=== PATIENT | female | born 1970 | race Caucasian/White ===

== ENCOUNTER 2016-10-02 12:50 | Emergency (ER) | payer OTHER ==
[~2016-10-02] VITALS: Ht 157.5 cm; Wt 102.5 kg
[~2016-10-02 12:50] MED LIST: ALBU8.5H3 INH; CETI10CA PO; D-ME473S2 PO; GUAI473L22 PO; IBUP-1542 PO; IBUP800T25 PO; LISI10TA2 PO; NAPR-688 PO; ONDA4TAB14 PO; PRED50TA PO; PSEU30TA38 PO
[2016-10-02 13:01] VITALS: Ht 157.5 cm; Wt 102.5 kg
[2016-10-02] MEDS ORDERED: ONDANSETRON (ODT) 4 MG TAB ODT STA (14:51)
[2016-10-02] MEDS ORDERED: KETOROLAC 30 MG INJ IM STA (14:51)
[2016-10-02] MEDS ORDERED: HYDROCODONE/APAP (5/325) TAB PO ONE (15:00)
[2016-10-02 15:12] LABS: URINE BLOOD (Dip) POC Trace-lysed (NEGATIVE)
--- NOTE | 2016-10-02 16:05 | RADRPT ---
PROCEDURE: XR Cervical Spine. CLINICAL INDICATION: Neck pain. Headache TECHNIQUE: AP, lateral, and odontoid views of the cervical spine were obtained. COMPARISON: None available FINDINGS: Mineralization is within normal limits. No fracture or osseous lesion is identified. Vertebral bod ies are normal in height. Cervical lordosis is preserved. No vertebral subluxation is seen. Inter vertebral discs are normal in height except for C5-6 which shows trace posterior narrowing and anter ior spondylosis. Facet joints appear maintained. Prevertebral soft tissues, predental space and at lantoaxial joint are unremarkable. RPTAT:HJJR IMPRESSION: Trace posterior C5-6 disk narrowing and anterior spondylosis, otherwise unremarkable cervical spine series. Physician Julia Date Time Electronically viewed and signed by Physician Julia on 10/02/2016 16:04 JR/
[2016-10-02] MEDS ORDERED: TRAM-40 PO (16:27)
[2016-10-02] MEDS ORDERED: CYCL-319 PO (16:27)
[2016-10-02] MEDS ORDERED: IBUP-1542 PO (16:27)
[2016-10-02] MEDS ORDERED: CEPH-443 PO (16:31)
--- NOTE | 2016-10-02 16:31 | ERD ---
ER Documentation Chief Complaint Date/Time DATE: 10/02/16 TIME: 16:30 Chief Complaint TARIQ WITH RIGHT ARM PAIN WITH NAUSEA X 2 DAYS HPI This 46-year-old female complains of a 2 day history of pain in her neck radiating to her right arm and up the back of her head. She denies any history of trauma. May have started in the morning. She denies any fevers, visual changes, bowel bladder incontinence, weakness. She denies any chest pain or shortness of breath. ROS All systems reviewed and are negative except as per history of present illness. Medications Home Meds Active Scripts Cephalexin* (Keflex*) 500 Mg Capsule, 500 MG PO QID for 5 Days, CAP Prov:CAITLYN SHELLEY MD 10/02/16 Ibuprofen* (Motrin*) 600 Mg Tab, 600 MG PO Q6H Y for PAIN, #20 TAB Prov:CAITLYN SHELLEY MD 10/02/16 Cyclobenzaprine Hcl* (Cyclobenzaprine Hcl*) 10 Mg Tablet, 10 MG PO Q8 Y for PAIN , #15 TAB Prov:CAITLYN SHELLEY MD 10/02/16 Tramadol Hcl* (Ultram*) 50 Mg Tablet, 50 MG PO Q6H Y for PAIN, #20 TAB Prov:CAITLYN SHELLEY MD 10/02/16 Cetirizine Hcl* (Zyrtec*) 10 Mg Capsule, 10 MG PO DAILY, #30 TAB.CHEW Prov:CHELSEA BERGER NP 03/18/16 Guaifenesin-Codeine Phosphate* (Guaifenesin* AC Cough Syrup) 473 Ml Liquid, 5 ML PO Q4H Y for COUGH, #60 ML Prov:CHELSEA BERGER NP 03/18/16 Prednisone* (Prednisone*) 50 Mg Tablet, 50 MG PO DAILY, #5 TAB Prov:CHELSEA BERGER NP 03/18/16 Ibuprofen* (Motrin*) 600 Mg Tab, 600 MG PO Q6H Y for PAIN AND OR ELEVATED TEMP, #30 TAB Prov:CHELSEA BERGER NP 03/18/16 Ondansetron (Ondansetron Odt) 4 Mg Tab.rapdis, 4 MG PO Q8 Y for NAUSEA AND/OR VOMITING, #30 TAB Prov:CHELSEA BERGER NP 03/18/16 Albuterol Sulfate* (Proair HFA*) 8.5 Gm Hfa.aer.ad, 2 PUFF INH Q4H Y for WHEEZING AND SOB, #1 INHALER Prov:CHELSEA BERGER NP 03/18/16 Ibuprofen* (Ibuprofen*) 800 Mg Tab, 800 MG PO Q6H Y for PAIN, #30 TAB Prov:SWATI PEDRAZA PA-C 10/13/15 Pseudoephedrine Hcl* (Pseudoephedrine Hcl*) 30 Mg Tablet, 30 MG PO Q6 Y for CONGESTION, #30 TAB Prov:SWATI PEDRAZA PA-C 10/13/15 Dextromethorphan Hb-Promethazine Hcl* (Promethazine DM* Syrup) 473 Ml Syrup, 5 ML PO Q6 Y for COUGH, #100 ML Prov:SWATI PEDRAZA PA-C 10/13/15 Lisinopril* (Lisinopril*) 10 Mg Tablet, 10 MG PO DAILY, #30 TAB Prov:SWATI PEDRAZA PA-C 10/13/15 Naproxen* (Naproxen*) 500 Mg Tablet, 500 MG PO BID Y for PAIN, #20 TAB Prov:ZULMA ZAPATA DO 09/23/15 Lisinopril* (Lisinopril*) 10 Mg Tablet, 10 MG PO DAILY, #30 TAB Prov:RUDDY VAZQUEZ 03/09/15 Allergies Allergies: Coded Allergies: No Known Allergy (Unverified , 10/02/16) PMhx/Soc History of Surgery: Yes (CHOLESTECTOMY) Anesthesia Reaction: No Hx Neurological Disorder: No Hx Cardiac Disorders: No Hx Psychiatric Problems: No Hx Miscellaneous Medical Probl: Yes (HTN , GASTRITIS ) Hx Alcohol Use: No Hx Substance Use: No Hx Tobacco Use: No Smoking Status: Never smoker Physical Exam Vitals Vital Signs Date Time Temp Pulse Resp B/P Pulse Ox O2 Delivery O2 Flow Rate FiO2 10/02/16 13:01 98.1 64 20 175/95 98 Physical Exam Const: [] Alert, [id number] per Head: Atraumatic Eyes: Normal Conjunctiva ENT: Normal External Ears, Nose and Mouth. Neck: Full range of motion..~ No meningismus. Some tenderness in the right cervical paraspinous muscles. No midline tenderness or deformities Resp: Clear to auscultation bilaterally Cardio: Regular rate and rhythm, no murmurs Abd: Soft, non tender, non distended. Normal bowel sounds Skin: No petechiae or rashes Back: No midline or flank tenderness Ext: No cyanosis, or edema Neur: Awake and alert. Cranial nerves II through XII. Grossly intact. No cerebellar signs. Normal gait. Psych: Normal Mood and Affect Results 24 hrs Laboratory Tests Test 10/02/16 15:14 Bedside Urine pH (LAB) 6.0 Bedside Urine Protein (LAB) 1+ Bedside Urine Glucose (UA) Negative Bedside Urine Ketones (LAB) Negative Bedside Urine Blood Trace-lysed Bedside Urine Nitrite (LAB) Positive Bedside Urine Leukocyte Esterase (L Trace Current Medications Medications (Trade) Dose Ordered Sig/Frank Route PRN Reason Start Time Stop Time Status Last Admin Dose Admin Ketorolac Tromethamine (Toradol) 30 mg ONCE STAT IM 10/02/16 14:51 10/02/16 14:53 DC 10/02/16 15:15 Acetaminophen/ Hydrocodone Bitart ([place] (5/325)) 1 tab ONCE ONCE PO 10/02/16 15:00 10/02/16 15:01 DC 10/02/16 15:15 Ondansetron HCl (Zofran Odt) 8 mg ONCE STAT ODT 10/02/16 14:51 10/02/16 14:53 DC 10/02/16 15:15 Procedures/MDM Urine shows positive nitrites and leukocytes. HCG is negative. X-ray C spine 3V Interpreted by me: Bones: [No fracture] Joints: [No dislocation] Foreign body: [None]. Impression-degenerative changes on C-spine x- rays without acute findings. Patient was given [place] 5 mg by mouth and Toradol 30 mg IM. Patient has neck pain radiating to her accepted and right upper extremity suggestive of cervical radicular symptoms. Signs and symptoms do not suggest intracranial mass-effect , fracture, dislocation neurologic deficits, bacterial infection related to her neck pain. Urine shows signs of infection we will treated with Keflex but additionally with tramadol and Flexeril for her neck pain. Patient is advised to follow-up with primary doctor this week return to the ER for new or worsening symptoms . The patient was stable with no new complaints during the ER course. Clinically, there is no current evidence to suggest meningitis, sepsis, acute abdomen, pneumonia, acute coronary syndrome, pulmonary embolism, or any other emergent condition appearing to require further evaluation or hospitalization. The patient should certainly return for any new or worsening symptoms per the aftercare instructions. They should otherwise follow-up with her primary care doctor for reevaluation this week. Departure Diagnosis: Primary Impression: Radicular pain Additional Impressions: Headache Headache type: unspecified Headache chronicity pattern: unspecified pattern Intractability: not intractable Qualified Code: R51 - Nonintractable headache, unspecified chronicity pattern, unspecified headache type Neck pain Condition: Stable Patient Instructions: Neck Pain, No Trauma, Radiculopathy, Cervical Additional Instructions: probablamente simptomas es del nervio de nucha. Cheque otro vez con mon doctor primario en el proximo martinez or regresa para mas o nueva simptomas. CAITLYN SHELLEY MD October 02, 2016 16:31
[2016-10-02 16:41] VITALS: BP 138/75; PULSE 71; RESP 16; TEMP 98.4
== END 2016-10-02 16:43 | disposition home or self-care (01) ==
LOC: FTE 12:50
DX: M54.10 Radiculopathy, site unspecified (principal); M54.2 Cervicalgia; I10 Essential (primary) hypertension; R11.0 Nausea
CPT/HCPCS: 72040; 81003; 96372; J1885; Z7502; Z7610

== ENCOUNTER 2017-02-24 16:12 | Emergency (ER) | payer OTHER ==
[~2017-02-24] VITALS: Ht 152.4 cm; Wt 89.0 kg
[~2017-02-24 16:12] MED LIST changes: +CEPH-443 PO; +CYCL-319 PO; +TRAM-40 PO
[2017-02-24 16:14] VITALS: Ht 152.4 cm; Wt 89.0 kg
--- NOTE | 2017-02-24 17:22 | ERD ---
ER Documentation Chief Complaint Date/Time DATE: 02/24/17 TIME: 17:15 Chief Complaint AP,NECK PAIN X 3 DAYS HPI 46-year-old female who presented emergency department for nontraumatic and reproducing neck pain, upper back pain for 3 days. LMP: 02/18/2017. A0. Denies headache, dizziness, blurry vision, changes in vision, throat pain, difficulty swallowing, shoulder pain, chest pain, abdominal pain, nausea, vomiting, constipation, diarrhea, urinary symptoms, loss of bowel and bladder control, , possibility of being , being sexually active, direct trauma, injury, falls, numbness or tingling sensation, difficulty walking , fever, chills. No known drug allergies. Past medical history of hypertension, asthma, hype both thyroidism. No surgical history. Medication: Accupril, levothyroxine. Social: Works as a caregiver. Denies smoking, use of alcohol, use of illegal drugs. ROS All systems reviewed and are negative except as per history of present illness. Medications Home Meds Active Scripts Cyclobenzaprine Hcl* (Cyclobenzaprine Hcl*) 10 Mg Tablet, 10 MG PO Q12, #20 TAB Prov:MADELAINEILAMOISÉSILAN F 02/24/17 Ibuprofen* (Motrin*) 800 Mg Tab, 800 MG PO Q8 Y for PAIN AND OR ELEVATED TEMP, # 30 TAB Prov:MADELAINEILABANILAN F 02/24/17 Cephalexin* (Keflex*) 500 Mg Capsule, 500 MG PO QID for 5 Days, CAP Prov:CAITLYN SHELLEY MD 10/02/16 Ibuprofen* (Motrin*) 600 Mg Tab, 600 MG PO Q6H Y for PAIN, #20 TAB Prov:CAITLYN SHELLEY MD 10/02/16 Cyclobenzaprine Hcl* (Cyclobenzaprine Hcl*) 10 Mg Tablet, 10 MG PO Q8 Y for PAIN , #15 TAB Prov:CAITLYN SHELLEY MD 10/02/16 Tramadol Hcl* (Ultram*) 50 Mg Tablet, 50 MG PO Q6H Y for PAIN, #20 TAB Prov:CAITLYN SHELLEY MD 10/02/16 Cetirizine Hcl* (Zyrtec*) 10 Mg Capsule, 10 MG PO DAILY, #30 TAB.CHEW Prov:CHELSEA BERGER NP 03/18/16 Guaifenesin-Codeine Phosphate* (Guaifenesin* AC Cough Syrup) 473 Ml Liquid, 5 ML PO Q4H Y for COUGH, #60 ML Prov:CHELSEA BERGER NP 03/18/16 Prednisone* (Prednisone*) 50 Mg Tablet, 50 MG PO DAILY, #5 TAB Prov:CHELSEA BERGER NP 03/18/16 Ibuprofen* (Motrin*) 600 Mg Tab, 600 MG PO Q6H Y for PAIN AND OR ELEVATED TEMP, #30 TAB Prov:CHELSEA BERGER NP 03/18/16 Ondansetron (Ondansetron Odt) 4 Mg Tab.rapdis, 4 MG PO Q8 Y for NAUSEA AND/OR VOMITING, #30 TAB Prov:CHELSEA BERGER NP 03/18/16 Albuterol Sulfate* (Proair HFA*) 8.5 Gm Hfa.aer.ad, 2 PUFF INH Q4H Y for WHEEZING AND SOB, #1 INHALER Prov:CHELSEA BERGER NP 03/18/16 Ibuprofen* (Ibuprofen*) 800 Mg Tab, 800 MG PO Q6H Y for PAIN, #30 TAB Prov:SWATI PEDRAZA PA-C 10/13/15 Pseudoephedrine Hcl* (Pseudoephedrine Hcl*) 30 Mg Tablet, 30 MG PO Q6 Y for CONGESTION, #30 TAB Prov:SWATI PEDRAZA PA-C 10/13/15 Dextromethorphan Hb-Promethazine Hcl* (Promethazine DM* Syrup) 473 Ml Syrup, 5 ML PO Q6 Y for COUGH, #100 ML Prov:SWATI PEDRAZA PA-C 10/13/15 Lisinopril* (Lisinopril*) 10 Mg Tablet, 10 MG PO DAILY, #30 TAB Prov:SWATI PEDRAZA PA-C 10/13/15 Naproxen* (Naproxen*) 500 Mg Tablet, 500 MG PO BID Y for PAIN, #20 TAB Prov:ZULMA ZAPATA DO 09/23/15 Lisinopril* (Lisinopril*) 10 Mg Tablet, 10 MG PO DAILY, #30 TAB Prov:RUDDY VAZQUEZ 03/09/15 Allergies Allergies: Coded Allergies: No Known Allergy (Unverified , 10/02/16) PMhx/Soc History of Surgery: Yes (CHOLESTECTOMY) Anesthesia Reaction: No Hx Neurological Disorder: No Hx Respiratory Disorders: Yes (asthma) Hx Cardiac Disorders: Yes (HTN) Hx Psychiatric Problems: No Hx Miscellaneous Medical Probl: Yes (HTN , GASTRITIS ) Hx Alcohol Use: No Hx Substance Use: No Hx Tobacco Use: No Smoking Status: Never smoker Physical Exam Vitals Vital Signs Date Time Temp Pulse Resp B/P Pulse Ox O2 Delivery O2 Flow Rate FiO2 02/24/17 18:01 98.0 77 18 133/74 99 Room Air 02/24/17 16:14 98.3 77 18 140/78 99 Physical Exam Const: [] Head: Atraumatic Eyes: Normal Conjunctiva ENT: Normal External Ears, Nose and Mouth. Neck: Full range of motion..~ No meningismus. Resp: Clear to auscultation bilaterally Cardio: Regular rate and rhythm, no murmurs Abd: Soft, non tender, non distended. Normal bowel sounds Skin: No petechiae or rashes Back: No midline or flank tenderness. Chest pain at this tenderness to right upper and left upper back. C-spine/T-spine/L-spine are in midline and is good and full range of motion without swelling/tenderness/point of tenderness. Bilateral upper and lower extremities are unremarkable. Ext: No cyanosis, or edema Neur: Awake and alert x4. No nerves II through XII are intact. Romberg test is negative. No neurological deficits. Psych: Normal Mood and Affect Procedures/MDM 46-year-old female who presented emergency department for nontraumatic and reproducing neck pain, upper back pain for 3 days. LMP: 02/18/2017. A0. Exam: Supraspinatus tenderness to the right upper and left upper back. Mild pain to the neck during range of motion of the neck. C-spine/T-spine/L-spine are in midline with good and full range of motion and without swelling/ tenderness/discoloration/bulging/point of tenderness. Moves all 4 extremities without difficulty. No neurological deficits. Cranial nerves II through XII are intact. Romberg test is negative. Disease process was explained to the patient. She verbalized understanding and agreed with the diagnostic test, treatment, plan of care. EKG: Normal sinus rhythm with a ventricular rate of 62 bpm. No evidence of acute myocardial infarction. No evidence of ischemia. Differential diagnosis: Acute myocardial infarction versus acute coronary syndrome versus stroke versus musculoskeletal spasms versus cervical radiculopathy. Diagnosis: Musculoskeletal spasm. Treatment: Flexeril. Follow-up with primary care physician the next 24-48 hours. Come back in the emergency department for any new symptoms or any worsening of symptoms. All questions and concerns are answered. Patient verbalized understanding and agreed with the plan of care. Hemodynamically stable on discharge Departure Diagnosis: Primary Impression: Muscle spasm Additional Impression: Cervical radicular pain Condition: Stable Additional Instructions: Follow-up with primary care physician the next 24-48 hours. Come back in the emergency department for any new symptoms or any worsening of symptoms. All questions and concerns are answered. Patient verbalized understanding and agreed with the plan of care. ILAN MIRANDA Feb 24, 2017 17:22
[2017-02-24] MEDS ORDERED: IBUP800T25 PO (17:23)
[2017-02-24] MEDS ORDERED: CYCL-319 PO (17:24)
[2017-02-24 18:01] VITALS: BP 133/74; PULSE 77; RESP 18; TEMP 98
== END 2017-02-24 18:01 | disposition home or self-care (01) ==
LOC: FTE 16:12
DX: M62.830 Muscle spasm of back (principal); M54.12 Radiculopathy, cervical region; I10 Essential (primary) hypertension; J45.901 Unspecified asthma with (acute) exacerbation; E03.9 Hypothyroidism, unspecified
CPT/HCPCS: 93005; Z7502

== ENCOUNTER 2017-06-14 02:38 | Emergency (ER) | END 2017-06-14 06:48 | disposition home or self-care (01) ==

== ENCOUNTER 2017-08-21 20:17 | Emergency (ER) | END 2017-08-22 00:51 | disposition home or self-care (01) ==

== ENCOUNTER 2018-03-30 12:00 | Emergency (ER) | END 2018-03-30 12:33 | disposition home or self-care (01) ==

== ENCOUNTER 2018-04-23 11:10 | Emergency (ER) | END 2018-04-23 14:59 | disposition home or self-care (01) ==

== ENCOUNTER 2018-06-26 15:44 | Emergency (ER) | payer OTHER ==
[~2018-06-26] VITALS: Ht 167.6 cm; Wt 103.6 kg
[~2018-06-26 15:44] MED LIST changes: +ACET325T33 PO; +ALBU18HF INHALATION; -ALBU8.5H3 INH; +ALBU8.5H8 INH; +AZIT250T PO; +BENZ-6 PO; +CETI10TA34 PO; -CYCL-319 PO; +CYCL10TA7 PO; +FLUT9.9S NASAL; +GUAI120S26 PO; +GUAI5SYR2 PO; +IBUP-1545 PO; -IBUP800T25 PO; +IBUP800T48 PO; +PRED20TA PO; +SODI30SP2 NS; -TRAM-40 PO; +TRAM50TA PO
[2018-06-26 15:45] VITALS: Ht 167.6 cm; Wt 103.6 kg
[2018-06-26] MEDS ORDERED: LEVO125T7 PO (16:36)
[2018-06-26] MEDS ORDERED: QUIN10TA PO (16:37)
[2018-06-26 17:05] VITALS: BP 125/80; PULSE 70; RESP 16
--- NOTE | 2018-06-26 17:09 | ERD ---
ER Documentation Chief Complaint Chief Complaint LOW HG 5.4, HAD VAG BLEEDING [id number] LAST DAY 06/13 HPI 47-year-old female who presents to the emergency room for evaluation of a hemoglobin of 5 at primary care office. The patient states over the last several weeks she has had approximately 14 days of menorrhagia and vaginal bleed ing. She is currently stopped bleeding. She went to see her primary OB or primary care physician and was told that she had anemia and presented to the emergency room. She does take iron supplementation. No hematemesis and no melena. During the patient's encounter translation services were utilized Language: Turkmen Source: In person ROS All systems reviewed and are negative except as per history of present illness. Medications Home Meds Reported Medications Quinapril Hcl (Accupril) 10 Mg Tablet, 10 MG PO DAILY, #30 TAB 06/26/18 Levothyroxine Sodium* (Levothyroxine Sodium*) 125 Mcg Tablet, 125 MCG PO BEFORE BREAKFAST, #30 TAB 06/26/18 Discontinued Scripts Prednisone* (Prednisone*) 20 Mg Tab, 40 MG PO DAILY for 4 Days, TAB Prov:IVY PHAM PA-C 04/23/18 Albuterol Sulfate* (Ventolin HFA*) 18 Gm Hfa.aer.ad, 2 PUFF INHALATION Q4H, #1 INHALER Prov:IVY PHAM PA-C 04/23/18 Mytubpzkzlg-N-Urigrgybwh Hb* (Guaifenesin* DM Syrup) 120 Ml Syrup, 10 ML PO Q4H PRN for COUGH for 7 Days, #1 BOTTLE Prov:BOOKER INIGUEZ DO 03/30/18 Ibuprofen* (Ibuprofen*) 600 Mg Tablet, 600 MG PO Q6H PRN for PAIN, #30 TAB Prov:BOOKER INIGUEZ DO 03/30/18 Benzonatate* (Tessalon Perle*) 100 Mg Capsule, 100 MG PO Q8H PRN for COUGH, #30 CAP Prov:MIRTHA HAMILTON PA-C 08/22/17 Sodium Chloride (Saline Nasal Weiner) 30 Ml Weiner, 30 ML NS BID, #1 SPRAY Prov:MIRTHA HAMILTON PA-C 08/22/17 Cetirizine Hcl* (Cetirizine Hcl*) 10 Mg Tab.chew, 10 MG PO DAILY, #30 TAB Prov:MIRTHA HAMILTONC 08/22/17 Acetaminophen* (Tylenol*) 325 Mg Tablet, 2 TAB PO Q4 PRN for PAIN AND OR ELEVATED TEMP, #30 TAB Prov:MIRTHA HAMILTONC 08/22/17 Guaifenesin-Dextromethorphan* (Robitussin* DM) 100MG/10MG/5ML Syrup, 10 ML PO Q6H PRN for COUGH for 5 Days, ML Prov:JUDI CHAVEZC 06/14/17 Fluticasone Propionate (Flonase Allergy Relief) 9.9 Ml Weiner.susp, 2 SPRAY NASAL DAILY, #1 BOTTLE TO EACH NOSTRIL Prov:JUDI CHAVEZ PA-C 06/14/17 Cetirizine Hcl* (Zyrtec*) 10 Mg Capsule, 10 MG PO DAILY, #14 TAB.CHEW Prov:JUDI CHAVEZ PA-C 06/14/17 Azithromycin* (Zithromax*) 250 Mg Tablet, 250 MG PO .ZPACK DIRECTED, #6 TAB TAKE 500 MG (2 TABS) THE FIRST DAY THEN 250 MG (1 TAB) DAYS 2-5 Prov:JUDI CHAVEZ PA-C 06/14/17 Prednisone* (Prednisone*) 20 Mg Tab, 40 MG PO DAILY for 4 Days, TAB Prov:JUDI CHAVEZC 06/14/17 Cyclobenzaprine Hcl* (Cyclobenzaprine Hcl*) 10 Mg Tablet, 10 MG PO Q12, #20 TAB Prov:MADELAINEILAILAN CURIEL F 02/24/17 Ibuprofen* (Motrin*) 800 Mg Tab, 800 MG PO Q8 PRN for PAIN AND OR ELEVATED TEMP, #30 TAB Prov:MADELAINEILAUSAMA CURIELAR F 02/24/17 Cephalexin* (Keflex*) 500 Mg Capsule, 500 MG PO QID for 5 Days, CAP Prov:CAITLYN SHELLEY MD 10/02/16 Ibuprofen* (Motrin*) 600 Mg Tab, 600 MG PO Q6H PRN for PAIN, #20 TAB Prov:CAITLYN SHELLEY MD 5/10/17 Cyclobenzaprine Hcl* (Cyclobenzaprine Hcl*) 10 Mg Tablet, 10 MG PO Q8 PRN for PAIN, #15 TAB Prov:CAITLYN SHELLEY MD 10/02/16 Tramadol Hcl* (Ultram*) 50 Mg Tablet, 50 MG PO Q6H PRN for PAIN, #20 TAB Prov:CAITLYN SHELLEY MD 10/02/16 Cetirizine Hcl* (Zyrtec*) 10 Mg Capsule, 10 MG PO DAILY, #30 TAB.CHEW Prov:CHELSEA BERGER NP 03/18/16 Guaifenesin-Codeine Phosphate* (Guaifenesin* AC Cough Syrup) 473 Ml Liquid, 5 ML PO Q4H PRN for COUGH, #60 ML Prov:CHELSEA BERGER NP 03/18/16 Prednisone* (Prednisone*) 50 Mg Tablet, 50 MG PO DAILY, #5 TAB Prov:CHELSEA BERGER NP 03/18/16 Ibuprofen* (Motrin*) 600 Mg Tab, 600 MG PO Q6H PRN for PAIN AND OR ELEVATED TEMP, #30 TAB Prov:CHELSEA BERGER NP 03/18/16 Ondansetron (Ondansetron Odt) 4 Mg Tab.rapdis, 4 MG PO Q8 PRN for NAUSEA AND/OR VOMITING, #30 TAB Prov:CHELSEA BERGER NP 03/18/16 Albuterol Sulfate* (Proair HFA*) 8.5 Gm Hfa.aer.ad, 2 PUFF INH Q4H PRN for WHEEZING AND SOB, #1 INHALER Prov:CHELSEA BERGER NP 03/18/16 Ibuprofen* (Ibuprofen*) 800 Mg Tab, 800 MG PO Q6H PRN for PAIN, #30 TAB Prov:SWATI PEDRAZA PA-C 10/13/15 Pseudoephedrine Hcl* (Pseudoephedrine Hcl*) 30 Mg Tablet, 30 MG PO Q6 PRN for CONGESTION, #30 TAB Prov:SWATI PEDRAZA PA-C 10/13/15 Dextromethorphan Hb-Promethazine Hcl* (Promethazine DM* Syrup) 473 Ml Syrup, 5 ML PO Q6 PRN for COUGH, #100 ML Prov:SWATI PEDRAZA PA-C 10/13/15 Lisinopril* (Lisinopril*) 10 Mg Tablet, 10 MG PO DAILY, #30 TAB Prov:SWATI PEDRAZA PA-C 10/13/15 Naproxen* (Naproxen*) 500 Mg Tablet, 500 MG PO BID PRN for PAIN, #20 TAB Prov:ZULMA ZAPATA DO 09/23/15 Lisinopril* (Lisinopril*) 10 Mg Tablet, 10 MG PO DAILY, #30 TAB Prov:RUDDY VAZQUEZ 03/09/15 Allergies Allergies: Coded Allergies: No Known Allergy (Unverified , 06/26/18) PMhx/Soc History of Surgery: Yes (CHOLESTECTOMY) Anesthesia Reaction: No Hx Neurological Disorder: No Hx Respiratory Disorders: Yes (asthma) Hx Cardiac Disorders: Yes (HTN) Hx Psychiatric Problems: No Hx Miscellaneous Medical Probl: Yes (THYROID, GASTRITIS ) Hx Alcohol Use: No Hx Substance Use: No Hx Tobacco Use: No Smoking Status: Never smoker FmHx Family History: No diabetes Physical Exam Vitals Vital Signs Date Temp Pulse Resp B/P (MAP) Pulse Ox O2 O2 Flow FiO2 Time Delivery Rate 06/26/18 97.3 79 20 146/89 100 15:45 (108) Physical Exam General: Well developed, well nourished, no acute distress Head: Normocephalic, atraumatic. Eyes: EOM intact ENT: Moist mucous membranes Neck: Full ROM Respiratory: No respiratory distress Cardiovascular: Well perfused distally Abdominal: Nondistended : Deferred MSK: No edema, no unilateral swelling, 5/5 strength Neurologic: Alert and oriented, moving all extremities, normal speech, steady gait Skin: No rash Psych: Normal mood Result Diagram: 06/26/18 1614 06/26/18 1614 Results 24 hrs Laboratory Tests Test 06/26/18 16:14 White Blood Count 10.0 10^3/ul Red Blood Count 4.44 10^6/ul Hemoglobin 10.3 g/dl Hematocrit 33.7 % Mean Corpuscular Volume 75.9 fl Mean Corpuscular Hemoglobin 23.2 pg Mean Corpuscular Hemoglobin Concent 30.6 g/dl Red Cell Distribution Width 17.9 % Platelet Count 410 10^3/UL Mean Platelet Volume 10.2 fl Immature Granulocytes % 0.600 % Neutrophils % 62.6 % Lymphocytes % 26.8 % Monocytes % 6.6 % Eosinophils % 2.9 % Basophils % 0.5 % Nucleated Red Blood Cells % 0.0 /100WBC Immature Granulocytes # 0.060 10^3/ul Neutrophils # 6.2 10^3/ul Lymphocytes # 2.7 10^3/ul Monocytes # 0.7 10^3/ul Eosinophils # 0.3 10^3/ul Basophils # 0.1 10^3/ul Nucleated Red Blood Cells # 0.0 10^3/ul Prothrombin Time 13.5 Sec Prothrombin Time Ratio 1.1 INR International Normalized Ratio 1.02 Activated Partial Thromboplast Time 26.0 Sec Sodium Level 140 mmol/L Potassium Level 3.3 mmol/L Chloride Level 106 mmol/L Carbon Dioxide Level 25 mmol/L Anion Gap 9 Blood Urea Nitrogen 13 mg/dl Creatinine 0.62 mg/dl Est Glomerular Filtrat Rate mL/min > 60 mL/min Glucose Level 104 mg/dl Calcium Level 9.2 mg/dl Serum HCG, Qualitative NEGATIVE Procedures/MDM LAB INTERPRETATION: * Hemoglobin of 10.3. MEDICAL DECISION MAKING: Patient presents with menorrhagia and possible anemia. The patient is hemodynamic is stable and otherwise well-appearing. No signs or symptoms concerning for GI bleed. ER COURSE: * Patient's hemoglobin here is 10. This is likely lab error from primary care office. The patient does not require transfusion at this time. * Patient is currently taking iron and needs to follow-up with her primary [employer]. A phone call was made without callback from primary referring physician. * No indication for transfusion at this time CONSULTATION: [None] DISPOSITION PLAN: The patient does not have an identifiable emergent medical condition that warrants inpatient hospitalization at this time. The patient is deemed safe for discharge with outpatient follow-up. We discussed follow up with the patient's primary care doctor within 24 to 48 h ours as needed. We also discussed return to the emergency room for worsening symptoms or worsening condition. Outpatient referral: Cathi/PSYCHOLOGY LECTURER Departure Diagnosis: Primary Impression: Menorrhagia Menorrahagia type: with irregular cycle Qualified Codes: N92.1 - Excessive and frequent menstruation with irregular cycle Condition: Stable Patient Instructions: Menorrhagia Referrals: [facility] () Usted se tovar hecho un examen mdico de control que le indica que no est en frank condicin que requiera tratamiento urgente en el Departamento de Emergencia. Un estudio ms profundo y el tratamiento de mon condicin pueden esperar sin ningn riesgo hasta que usted sea atendida/o en el consultorio de mon mdico o frank clnica. Es responsabilidad suya arreglar frank shayne para el seguimiento del ruben. MANEJO DE CONDICIONES NO URGENTES EN EL FUTURO 1) Si usted tiene un mdico de atencin primaria: Usted debera llamar a mon mdico de atencin primaria antes de venir al departamento de emergencia. Despus de las horas de consultorio, mon doctor o mon asociado/a est disponible por telfono. El mdico o enfermero de kyle en el servicio telefnico puede asesorarle por yadira medio para atender el problema, o ruben contrario se puede programar frank shayne. 2) Si usted no tiene un mdico de atencin primaria: Llame al mdico o clnica de referencia que aparece abajo aden las horas de consultorio para hacer frank shayne para que le vean. CLINICAS: [facility] [phone] [facility] [phone] [facility] [phone] [facility] [phone] [facility] [phone] [address] [facility]. [phone] [address] [facility] () Usted se tovar hecho un examen mdico de control que le indica que no est en frank condicin que requiera tratamiento urgente en el Departamento de Emergencia. Un estudio ms profundo y el tratamiento de mon condicin pueden esperar sin ningn riesgo hasta que usted sea atendida/o en el consultorio de mon mdico o frank clnica. Es responsabilidad suya arreglar frank shayne para el seguimiento del ruben. MANEJO DE CONDICIONES NO URGENTES EN EL FUTURO 1) Si usted tiene un mdico de atencin primaria: Usted debera llamar a mon mdico de atencin primaria antes de venir al departamento de emergencia. Despus de las horas de consultorio, mon doctor o mon asociado/a est disponible por telfono. El mdico o enfermero de kyle en el servicio telefnico puede asesorarle por yadira medio para atender el problema, o ruben contrario se puede programar frank shayne. 2) Si usted no tiene un mdico de atencin primaria: Llame al mdico o condado institucions de referencia que aparece abajo aden las horas de consultorio para hacer frank shayne para que le vean. SI USTED NO PUEDE PAGAR PARA MILENA UN MEDICO puede ir a: [facility] [address] [place] [address] [facility] [address] [place] [address] [facility] [address] [place] [address] [facility] [address] [place] [address] [employer] [place] [id number] [facility] [address] [place] [address] OFFICE FAX [facility] [address] [place] [address] [address] [address] [facility] [address] [place] [address] DR CONKLIN, HESHMAT [address] [facility], [address] [address] DR EVANSLUIS, [facility] [address] [facility] [place] [address] [facility] [address] [place] [address] [facility] [address] - [address] COBURN, KHADRA [address], [place] [address] DR BUSTILLO, KELLI [address] [facility]. [address], [facility] [address] [address] GALEANO, FARID [address] [place] [address] Additional Instructions: Llame al doctor nombrado abajo (Referral Sources) MAANA y yuli frank SHAYNE PARA DENTRO DE FRANK SEMANA. Dgale a la secretaria que nosotros le instruimos hacer esta shayne.Avise o llame si mon condicin se empeora antes de la shayne. MARIANA BLACKMON MD Jun 26, 2018 17:09
== END 2018-06-26 17:09 | disposition home or self-care (01) ==
LOC: E/R 15:44
DX: N92.1 Excessive and frequent menstruation with irregular cycle (principal); J45.909 Unspecified asthma, uncomplicated; I10 Essential (primary) hypertension
CPT/HCPCS: 36415; 80048; 84703; 85025; 85610; 85730; 86850; 86900; 86901; Z7502; 99283

== ENCOUNTER 2018-07-13 16:10 | Emergency (ER) | payer OTHER ==
[~2018-07-13] VITALS: Ht 167.6 cm; Wt 102.3 kg
[~2018-07-13 16:10] MED LIST changes: -ACET325T33 PO; -ALBU18HF INHALATION; -ALBU8.5H8 INH; -AZIT250T PO; -BENZ-6 PO; -CEPH-443 PO; -CETI10CA PO; -CETI10TA34 PO; -CYCL10TA7 PO; -D-ME473S2 PO; -FLUT9.9S NASAL; -GUAI120S26 PO; -GUAI473L22 PO; -GUAI5SYR2 PO; -IBUP-1542 PO; -IBUP-1545 PO; -IBUP800T48 PO; +LEVO125T7 PO; -LISI10TA2 PO; -NAPR-688 PO; -ONDA4TAB14 PO; -PRED20TA PO; -PRED50TA PO; -PSEU30TA38 PO; +QUIN10TA PO; -SODI30SP2 NS; -TRAM50TA PO
[2018-07-13 16:15] VITALS: Ht 167.6 cm; Wt 102.3 kg
[2018-07-13] MEDS ORDERED: ACETAMINOPHEN 325 MG TAB PO ONE (21:30)
[2018-07-13] MEDS ORDERED: IBUPROFEN 600 MG TAB PO ONE (21:30)
--- NOTE | 2018-07-13 21:55 | ERD ---
ER Documentation Chief Complaint Chief Complaint Complains of cough colds and flulike symptoms x 3 days HPI 47-year-old female presents here to emergency department for complaints of cough runny nose congestion for 3 days, dry cough, does not cough up any phlegm or blood. Complaints of fever. Patient does not any shortness of breath or wheezing. Patient did not take any medications to help with symptoms. ROS All systems reviewed and are negative except as per history of present illness. Medications Home Meds Reported Medications Quinapril Hcl (Accupril) 10 Mg Tablet, 10 MG PO DAILY, #30 TAB 06/26/18 Levothyroxine Sodium* (Levothyroxine Sodium*) 125 Mcg Tablet, 125 MCG PO BEFORE BREAKFAST, #30 TAB 06/26/18 Allergies Allergies: Coded Allergies: No Known Allergy (Unverified , 06/26/18) PMhx/Soc History of Surgery: Yes (CHOLESTECTOMY) Anesthesia Reaction: No Hx Neurological Disorder: No Hx Respiratory Disorders: Yes (asthma) Hx Cardiac Disorders: Yes (HTN) Hx Psychiatric Problems: No Hx Miscellaneous Medical Probl: Yes (THYROID, GASTRITIS ) Hx Alcohol Use: No Hx Substance Use: No Hx Tobacco Use: No FmHx Family History: No diabetes, No coronary disease, No other Physical Exam Vitals Vital Signs Date Temp Pulse Resp B/P (MAP) Pulse Ox O2 O2 Flow FiO2 Time Delivery Rate 07/13/18 100.0 21:35 07/13/18 101.9 102 20 163/100 97 16:15 (121) Physical Exam GENERAL: The patient is well developed and appropriate for usual state of health, in no apparent distress. CHEST: Clear to auscultation bilaterally. There are no rales, wheezes or rhonchi. HEART: Regular rate and rhythm. No murmurs, clicks, rubs or gallops. No S3 or S4. ABDOMEN: Soft, nontender and nondistended. Good bowel sounds. No rebound or guarding. No gross peritonitis. No gross organomegaly or masses. No Orozco sign or McBurney point tenderness. BACK: No midline or flank tenderness. EXTREMITIES: Equal pulses bilaterally. There is no peripheral clubbing, cyanosis or edema. No focal swelling or erythema. Full range of motion. Grossly neurovascularly intact. NEURO: Alert and oriented. Cranial nerves 2-12 intact. Motor strength in all 4 extremities with 5/5 strength. Sensation grossly intact. Normal speech and gait. SKIN: There is no apparent rash or petechia. The skin is warm and dry. HEMATOLOGIC AND LYMPHATIC: There is no evidence of excessive bruising or lymphedema. No gross cervical, axillary, or inguinal lymphadenopathy. Results 24 hrs Current Medications Medications Dose Sig/Frank Start Time Status Last (Trade) Ordered Route PRN Stop Time Admin Dose Reason Admin Ibuprofen 600 mg ONCE ONCE 07/13/18 DC 07/13/18 (Motrin) PO 21:30 21:34 07/13/18 21:31 650 mg ONCE ONCE 07/13/18 DC 07/13/18 Acetaminophen PO 21:30 21:35 (Tylenol 07/13/18 21:31 Tab) Patient was given medicines for fever control here in the emergency department. After treatment, patient temperature improved and lower. Patient appears well and is hemodynamically stable. Procedures/MDM Medical Decision Making: Patient symptoms are most likely consistent with upper respiratory tract infection which viral in origin, likely influenza. There is low suspicion for Pneumonia at this time since patients lungs sounds are clear, patient O2 saturation is normal and patient doesnt show any respiratory distress. Radiology exams not indicated at this time. There is low suspicion for other cardiopulmonary emergencies at this time such as CHF, Pulmonary Embolism, Pneumothorax, Aortic Aneurysm or any other cardiopulmonary emergencies at this time. There is low suspicion for sepsis. Patient appears well and is hemodynamically stable. Fever is controlled with medicines. Disposition: Home. Condition: Stable Prescriptions: Tessalon Perles Zyrtec ibuprofen Tylenol Instructions: Patient is advised to take medications as prescribed. Patient is advised to rest. Patient advised to increase fluid intake, do humidifier at home and if possible, do salt water gargles. Patient is advised that if symptoms are worse, shortness of breath, uncontrolled fever, stridor, vomiting, worst signs and symptoms to return to emergency department immediately. Otherwise, patient is advised to follow up with primary doctor in 5-7 days. Disclaimer: Inadvertent spelling and grammatical errors are likely due to EHR/dictation software use and do not reflect on the overall quality of patient care. Also, please note that the electronic time recorded on this note does not necessarily reflect the actual time of the patient encounter. Departure Diagnosis: Primary Impression: Influenza-like symptoms Condition: Stable Patient Instructions: Influenza (Adult) Additional Instructions: Patient is advised to take medications as prescribed. Patient is advised to rest. Patient advised to increase fluid intake, do humidifier at home and if possible, do salt water gargles. Patient is advised that if symptoms are worse, shortness of breath, uncontrolled fever, stridor, vomiting, worst signs and symptoms to return to emergency department immediately. Otherwise, patient is advised to follow up with primary doctor in 5-7 days. CHELSEA BERGER NP Jul 13, 2018 21:55
[2018-07-13] MEDS ORDERED: BENZ-6 PO (21:57)
[2018-07-13] MEDS ORDERED: IBUP-1542 PO (21:57)
[2018-07-13] MEDS ORDERED: ACET500C5 PO (21:57)
[2018-07-13] MEDS ORDERED: CETI10CA PO (21:57)
[2018-07-13 22:37] VITALS: BP 125/78; PULSE 98; RESP 20
== END 2018-07-13 22:38 | disposition home or self-care (01) ==
LOC: FTE 16:10
DX: R05 Cough (principal); R09.89 Other specified symptoms and signs involving the circulatory and respiratory systems; R50.9 Fever, unspecified; I10 Essential (primary) hypertension; J45.909 Unspecified asthma, uncomplicated
CPT/HCPCS: Z7502; Z7610; 99283

== ENCOUNTER 2018-08-29 17:45 | Emergency (ER) | payer SELFPAY ==
[~2018-08-29] VITALS: Wt 90.0 kg
[~2018-08-29 17:45] MED LIST changes: +ACET500C5 PO; +BENZ-6 PO; +CETI10CA PO; +IBUP-1542 PO
[2018-08-29 17:47] VITALS: BP 160/89; PULSE 83; RESP 18
[2018-08-29] MEDS ORDERED: KETOROLAC 60 MG INJ IM STA (18:46)
[2018-08-29] MEDS ORDERED: IBUP-1542 PO (18:51)
[2018-08-29] MEDS ORDERED: TRAM50TA2 PO (18:51)
--- NOTE | 2018-08-29 18:53 | ERD ---
ER Documentation Chief Complaint Chief Complaint BACK PAIN HPI 48-year-old female presents with acute low back pain after bending over cleaning today. She denies any radiation, history of fall, bowel or bladder incontinence, fevers, urinary complaints. Pain described as a 10 nonradiating and sharp. Worse with movement and relieved by rest. ROS All systems reviewed and are negative except as per history of present illness. Medications Home Meds Active Scripts Tramadol HCl (Tramadol HCl) 50 Mg Tablet, 50 MG PO Q4 PRN for PAIN, #15 TAB Prov:CAITLYN SHELLEY MD 08/29/18 Ibuprofen* (Motrin*) 600 Mg Tab, 600 MG PO Q6, #30 TAB Prov:CAITLYN SHELLEY MD 08/29/18 Cetirizine Hcl* (Zyrtec*) 10 Mg Capsule, 10 MG PO DAILY, #20 TAB.CHEW Prov:CHELSEA BERGER NP 07/13/18 Acetaminophen* (Tylophen*) 500 Mg Capsule, 1 CAP PO Q6H PRN for PAIN AND OR ELEVATED TEMP, #20 CAP Prov:CHELSEA BERGER REGISTER REPAIRER 07/13/18 Ibuprofen* (Motrin*) 600 Mg Tab, 600 MG PO Q6H PRN for PAIN AND OR ELEVATED TEMP, #30 TAB Prov:CHELSEA BERGER NP 07/13/18 Benzonatate* (Tessalon Perle*) 100 Mg Capsule, 100 MG PO Q8H PRN for COUGH, #30 CAP Prov:CHELSEA BERGER NP 07/13/18 Reported Medications Quinapril Hcl (Accupril) 10 Mg Tablet, 10 MG PO DAILY, #30 TAB 06/26/18 Levothyroxine Sodium* (Levothyroxine Sodium*) 125 Mcg Tablet, 125 MCG PO BEFORE BREAKFAST, #30 TAB 06/26/18 Allergies Allergies: Coded Allergies: No Known Allergy (Unverified , 06/26/18) PMhx/Soc History of Surgery: Yes (CHOLESTECTOMY) Anesthesia Reaction: No Hx Neurological Disorder: No Hx Respiratory Disorders: Yes (asthma) Hx Cardiac Disorders: Yes (HTN) Hx Psychiatric Problems: No Hx Miscellaneous Medical Probl: Yes (THYROID, GASTRITIS ) Hx Alcohol Use: No Hx Substance Use: No Hx Tobacco Use: No Smoking Status: Never smoker Physical Exam Vitals Vital Signs Date Temp Pulse Resp B/P (MAP) Pulse Ox O2 O2 Flow FiO2 Time Delivery Rate 08/29/18 98.7 83 18 160/89 99 17:47 (112) Physical Exam Const: No acute distress Head: Atraumatic Eyes: Normal Conjunctiva ENT: Normal External Ears, Nose and Mouth. Neck: Full range of motion. No meningismus. Resp: Clear to auscultation bilaterally Cardio: Regular rate and rhythm, no murmurs Abd: Soft, non tender, non distended. Normal bowel sounds Skin: No petechiae or rashes Back: No midline or flank tenderness. Tenderness lumbar paraspinous area without midline tenderness or deformities, skin changes, negative straight leg raise. Ext: No cyanosis, or edema Neur: Awake and alert Psych: Normal Mood and Affect Results 24 hrs Current Medications Medications Dose Sig/Frank Start Time Status Last (Trade) Ordered Route PRN Stop Time Admin Dose Reason Admin Ketorolac 60 mg ONCE STAT 08/29/18 DC Tromethamine IM 18:46 08/29/18 (Toradol) 18:47 Procedures/MDM Patient presents with acute low back pain after bending over today. She has no signs symptoms, signs or mechanism to suggest fracture and no signs or symptoms of cauda equina syndrome, epidural abscess, neurologic deficit, additional concerning signs or symptoms. She likely has muscular skeletal strain. She is given Toradol 60 mg IM now treated with ibuprofen, tramadol, recommendations for back exercises, primary care follow-up and return precautions. The patient was stable with no new complaints during the ER course. Clinically, there is no current evidence to suggest meningitis, sepsis, acute abdomen, pneumonia, stroke, acute coronary syndrome, pulmonary embolism, aortic dissection or any other emergent condition appearing to require further evaluation or hospitalization. Patient counseled regarding my diagnostic impression and care plan. Prior to discharge all questions answered. Pt agrees with treatment plan and understands strict return precautions. Pt is instructed to follow up with primary care provider within 24-48 hours. Precautionary instructions provided including instructions to return to the ER if not improving or for any worsening or changing symptoms or concerns. Departure Diagnosis: Primary Impression: Back pain Back pain location: low back pain Chronicity: acute Back pain laterality: bilateral Sciatica presence: without sciatica Qualified Codes: M54.5 - Low back pain Condition: Stable Patient Instructions: Back Exercises, Lumbar, Back Sprain/Strain Referrals: NO PRIMARY,CARE PHYSICIAN (PCP) Additional Instructions: Cheque otro vez con mon doctor primario en el proximo martinez or regresa para mas o nueva simptomas. CAITLYN SHELLEY MD Aug 29, 2018 18:53
== END 2018-08-29 19:32 | disposition home or self-care (01) ==
LOC: FTE 17:45
DX: M54.5 Low back pain (principal); I10 Essential (primary) hypertension; J45.909 Unspecified asthma, uncomplicated
CPT/HCPCS: 81025; 96372; 99284; J1885

== ENCOUNTER 2018-09-12 10:32 | Emergency (ER) | payer SELFPAY ==
[~2018-09-12] VITALS: Ht 167.6 cm; Wt 90.9 kg
[~2018-09-12 10:32] MED LIST changes: +TRAM50TA2 PO
[2018-09-12 10:37] VITALS: BP 187/87; PULSE 76; RESP 18; Ht 167.6 cm; Wt 90.9 kg
[2018-09-12] MEDS ORDERED: IBUP-1542 PO (11:44)
[2018-09-12] MEDS ORDERED: AMOX500C2 PO (11:45)
--- NOTE | 2018-09-12 12:04 | ERD ---
ER Documentation Chief Complaint Chief Complaint PT HAS ST X 3 DAYS NO FEVER HPI Patient is a 48-year-old female with past medical history of hypertension, asthma presents the ER for concern of throat pain times 3 days. Patient has no cough. Patient has no fevers. Patient states she does feel are also swollen. Patient has no nausea, vomiting, vomiting or diarrhea. Patient has no neck pain or neck stiffness. No recent travel. No sick contacts. ROS All systems reviewed and are negative except as per history of present illness. Medications Home Meds Active Scripts Amoxicillin* (Amoxicillin*) 500 Mg Cap, 500 MG PO BID for 7 Days, CAP Prov:MATTIE MINA PA-C 09/12/18 Ibuprofen* (Motrin*) 600 Mg Tab, 600 MG PO Q6, #30 TAB Prov:MATTIE MINA PA-C 09/12/18 Tramadol HCl (Tramadol HCl) 50 Mg Tablet, 50 MG PO Q4 PRN for PAIN, #15 TAB Prov:CAITLYN SHELLEY MD 08/29/18 Ibuprofen* (Motrin*) 600 Mg Tab, 600 MG PO Q6, #30 TAB Prov:CAITLYN SHELLEY MD 08/29/18 Cetirizine Hcl* (Zyrtec*) 10 Mg Capsule, 10 MG PO DAILY, #20 TAB.CHEW Prov:CHELSEA BERGER NP 07/13/18 Acetaminophen* (Tylophen*) 500 Mg Capsule, 1 CAP PO Q6H PRN for PAIN AND OR ELEVATED TEMP, #20 CAP Prov:CHELSEA BERGER NP 07/13/18 Ibuprofen* (Motrin*) 600 Mg Tab, 600 MG PO Q6H PRN for PAIN AND OR ELEVATED TEMP, #30 TAB Prov:CHELSEA BERGER NP 07/13/18 Benzonatate* (Tessalon Perle*) 100 Mg Capsule, 100 MG PO Q8H PRN for COUGH, #30 CAP Prov:CHELSEA BERGER NP 07/13/18 Reported Medications Quinapril Hcl (Accupril) 10 Mg Tablet, 10 MG PO DAILY, #30 TAB 06/26/18 Levothyroxine Sodium* (Levothyroxine Sodium*) 125 Mcg Tablet, 125 MCG PO BEFORE BREAKFAST, #30 TAB 06/26/18 Allergies Allergies: Coded Allergies: No Known Allergy (Unverified , 09/12/18) PMhx/Soc History of Surgery: Yes (CHOLESTECTOMY) Anesthesia Reaction: No Hx Neurological Disorder: No Hx Respiratory Disorders: Yes (asthma) Hx Cardiac Disorders: Yes (HTN) Hx Psychiatric Problems: No Hx Miscellaneous Medical Probl: Yes (THYROID, GASTRITIS ) Hx Alcohol Use: No Hx Substance Use: No Hx Tobacco Use: No Smoking Status: Never smoker FmHx Family History: No diabetes Physical Exam Vitals Vital Signs Date Temp Pulse Resp B/P (MAP) Pulse Ox O2 O2 Flow FiO2 Time Delivery Rate 09/12/18 98.4 76 18 187/87 100 10:37 (120) Physical Exam GENERAL: Well-developed, well-nourished female. Appears in no acute distress. Speaking in full sentences. HEAD: Normocephalic, atraumatic. EYES: Pupils are equally reactive bilaterally. EOMs grossly intact. No conjunctival erythema. ENT: Bilateral TMs are nonerythematous, nonbulging. Oropharynx is erythematous with 1+ tonsillar enlargement. moist mucous membranes. No uvula deviation. No kissing tonsils. NECK: Supple. No meningismus. Normal range of motion of the neck. Positive less than 1 cm cervical lymphadenopathy noted bilaterally. LUNG: Clear to auscultation bilaterally. No rhonchi, wheezing, rales or coarse breath sounds. HEART: Regular rate and rhythm. No murmurs, rubs or gallops. EXTREMITIES: Equal pulses bilaterally. No peripheral clubbing, cyanosis or edema. No unilateral leg swelling. NEUROLOGIC: Alert and oriented. Moving all four extremities without any difficulty. Normal speech. Steady gait. SKIN: Normal color. Warm and dry. No rashes or lesions. Procedures/MDM MEDICAL DECISION MAKING: This is a 48-year-old female presents the ER for concerns of throat pain times 3 days.. Vital signs were reviewed. Patient was afebrile. Patient was not hypoxic. The patient does not have trismus, muffled voice, uvula deviation, unilateral tonsillar swelling, or drooling. No signs of neck swelling or hyperextension of the neck noted. Patient did have tender lymphadenopathy. Trial of amoxicillin was given for concerns of strep pharyngitis. Low suspicion for mononucleosis, meningitis, epiglottitis, peritonsillar abscess, retropharyngeal abscess, Ludwigs angina, viral pharyngitis, dental abscess. PRESCRIPTIONS: Amoxicillin DISCHARGE: At this time, patient is stable for discharge and outpatient management. Supportive therapies such as OTC throat lozenges and warm salt water gurgles were discussed. I have instructed the patient to follow-up with his/her primary care physician in 1-2 days. I have discussed with the patient the possibility of needing to see a specialist for further workup and imaging studies if symptoms persist. I have instructed the patient to promptly return to the ER for any new or worsening symptoms including increased pain, fever, nausea, vomiting, weakness or LOC. The patient and/or family expressed understanding of and agreement with this plan. All questions were answered. Home care instructions were provided. Disclaimer: Inadvertent spelling and grammatical errors are likely due to EHR/dictation software use and do not reflect on the overall quality of patient care. Also, please note that the electronic time recorded on this note does not necessarily reflect the actual time of the patient encounter. Departure Diagnosis: Primary Impression: Pharyngitis Pharyngitis/tonsillitis etiology: unspecified etiology Qualified Codes: J02.9 - Acute pharyngitis, unspecified Condition: Stable Patient Instructions: Pharyngitis, Strep (Presumed) Referrals: [facility] YOU HAVE RECEIVED A MEDICAL SCREENING EXAM AND THE RESULTS INDICATE THAT YOU DO NOT HAVE A CONDITION THAT REQUIRES URGENT TREATMENT IN THE EMERGENCY DEPARTMENT. FURTHER EVALUATION AND TREATMENT OF YOUR CONDITION CAN WAIT UNTIL YOU ARE SEEN IN YOUR DOCTORS OFFICE WITHIN THE NEXT 1-2 DAYS. IT IS YOUR RESPONSIBILITY TO MAKE AN APPOINTMENT FOR FOLOW-UP CARE. IF YOU HAVE A PRIMARY DOCTOR --you should call your primary doctor and schedule an appointment IF YOU DO NOT HAVE A PRIMARY DOCTOR YOU CAN CALL OUR PHYSICIAN REFERRAL HOTLINE AT IF YOU CAN NOT AFFORD TO SEE A PHYSICIAN YOU CAN CHOSE FROM THE FOLLOWING [facility] [address] [facility] [address] [place] [facility] [address] [facility] [address] [facility] [facility] [address] [facility]. [facility] [address] [facility]. [facility] YOU HAVE RECEIVED A MEDICAL SCREENING EXAM AND THE RESULTS INDICATE THAT YOU DO NOT HAVE A CONDITION THAT REQUIRES URGENT TREATMENT IN THE EMERGENCY DEPARTMENT. FURTHER EVALUATION AND TREATMENT OF YOUR CONDITION CAN WAIT UNTIL YOU ARE SEEN IN YOUR DOCTORS OFFICE WITHIN THE NEXT 1-2 DAYS. IT IS YOUR RESPONSIBILITY TO MAKE AN APPOINTMENT FOR FOLOW-UP CARE. IF YOU HAVE A PRIMARY DOCTOR --you should call your primary doctor and schedule and appointment IF YOU DO NOT HAVE A PRIMARY DOCTOR YOU CAN CALL OUR PHYSICIAN REFERRAL HOTLINE AT . IF YOU CAN NOT AFFORD TO SEE A PHYSICIAN YOU CAN CHOSE FROM THE FOLLOWING REPLACED BY [facility] INSTITUTIONS: [facility] [id number] [place] [id number] [facility] [address] [place], [place] [id number] [place] [address] [address] [place] [address] Additional Instructions: Llame al doctor MAANA y yuli frank SHAYNE PARA DENTRO DE 1-2 REYES.Dgale a la secretaria que nosotros le instruimos hacer esta shayne.Avise o llame si mon condicin se empeora antes de la shayne. Regresa aqui si peor o no mejor. MATTIE MINA PA-C Sep 12, 2018 12:04
== END 2018-09-12 12:09 | disposition home or self-care (01) ==
LOC: FTE 10:32
DX: J02.9 Acute pharyngitis, unspecified (principal); I10 Essential (primary) hypertension
CPT/HCPCS: 99283

== ENCOUNTER 2019-01-26 19:58 | Emergency (ER) | payer OTHER ==
[~2019-01-26] VITALS: Ht 167.6 cm; Wt 104.9 kg
[~2019-01-26 19:58] MED LIST changes: +AMOX500C2 PO; +CEPH500C PO; +NAPR-985 PO; +QUIN20TA23 PO
[2019-01-26 20:15] VITALS: Ht 167.6 cm; Wt 104.9 kg
[2019-01-26] MEDS ORDERED: NICARDipine HCL 30 MG CAPSULE PO ONE (23:30)
[2019-01-27 01:07] VITALS: BP 159/90; PULSE 67; RESP 20
== END 2019-01-27 01:08 | disposition home or self-care (01) ==
LOC: FTE 19:58
DX: N39.0 Urinary tract infection, site not specified (principal); Z76.0 Encounter for issue of repeat prescription
CPT/HCPCS: 81003; 81025; Z7502; Z7610; 99283

== ENCOUNTER 2019-02-09 13:55 | Emergency (ER) | payer OTHER ==
[~2019-02-09] VITALS: Wt 103.3 kg
[~2019-02-09 13:55] MED LIST changes: +D-ME118S24 PO; +PRED20TA PO
[2019-02-09 13:59] VITALS: BP 151/80; PULSE 73; RESP 20
== END 2019-02-09 17:08 | disposition home or self-care (01) ==
LOC: E/R 13:55
DX: R05 Cough (principal); I10 Essential (primary) hypertension; E03.9 Hypothyroidism, unspecified; J45.909 Unspecified asthma, uncomplicated
CPT/HCPCS: 99283